=== PATIENT | female | born 1955 | race Caucasian/White ===

== ENCOUNTER 2017-07-02 00:24 | Day surgery (SDC) | payer OTHER ==
--- NOTE | 2017-07-01 19:34 | HISTORY AND PHYSICAL ---
DATE OF ADMISSION: July 02, 2017 CHIEF COMPLAINT Postmenopausal bleeding. HISTORY OF PRESENT ILLNESS Patient is a 61-year-old 4, para 2 with abnormal bleeding beginning weeks ago. She noticed the vaginal bleeding at times heavy, moderate in intensity. The duration lasted weeks and was sudden in onset. It is aggravated by her being menopausal and she had no other signs or symptoms. She had an endometrial biopsy that did not show signs of endometrial cancer or hyperplasia. She did have a saline infusion sonogram that showed an intrauterine mass. After discussion of risks and alternatives, patient agreed to proceed with hysteroscopic either polypectomy or myomectomy and fractional D and C. MEDICATIONS 1. Bystolic 10 mg. 2. CoQ10 10 mg. 3. Effexor 75 mg. 4. Enalapril/hydrochlorothiazide 10/25. 5. Liothyronine 5 mcg, which was 15 mcg per day. 6. Pravastatin 40 mg. 7. Progesterone 100 mg. 8. Vivelle-Dot 0.05 mg per 24 hours transdermal patch. 9. Wellbutrin 300 mg tablet daily. ALLERGIES ASPIRIN. REVIEW OF SYSTEMS GENITOURINARY: As per HPI. GENERAL, SKIN, EYES, EARS, NOSE, MOUTH, NECK, RESPIRATORY, CARDIOVASCULAR, GASTROINTESTINAL, MUSCULOSKELETAL, NEUROLOGICAL: All reviewed and noncontributory. PAST MEDICAL HISTORY 1. Infertility. 2. Depression. 3. High cholesterol. 4. Hypertension. 5. Skin cancer. 6. Concussion in April 2017. PAST SURGICAL HISTORY 1. Two C-sections. 2. Right thumb surgery in 2013. 3. Left thumb surgery in 2014. 4. Left shoulder in 2007. 5. Left shoulder in 2008. 6. In 2012, wide excision of skin cancer on her chest. 7. In 1990, right knee. 8. In 2015, colonoscopy. FAMILY HISTORY Father with depression and stroke. Mother with hypertension and skin cancer. SOCIAL HISTORY Drinks occasionally. She is a nonsmoker. No illicit drug use. She is an education program associate at . PHYSICAL EXAMINATION VITAL SIGNS: BP 118/76, temp 99.1, weight 218. CONSTITUTIONAL: A well-nourished, well-developed female in no distress. SKIN: Without rash or lesions. NECK: Supple without masses. HEART: Regular rate and rhythm. LUNGS: Clear to auscultation bilaterally. ABDOMEN: Soft, nontender, nondistended. Bowel sounds positive. EXTREMITIES: Nontender. No edema. PSYCHIATRIC: Alert and oriented times three. Normal mood and affect. PELVIC: Normal external female genitalia. Well estrogenized vaginal lining. Urethra normal in appearance. Cervix normal in appearance. Bladder nontender. Uterus 6 x 5 cm. No adnexal masses or tenderness. ASSESSMENT Postmenopausal bleeding with a polypoid mass within the uterus. PLAN Plan to perform hysteroscopic polypectomy or myomectomy and fractional D and C. MTDD
[~2017-07-02] VITALS: Ht 167.6 cm; Wt 95.3 kg
[~2017-07-02 00:24] MED LIST: BUPR-474 PO; ENAL1TAB35 PO; EZET1TAB81 PO; HYDROmorphone HCL 2 MG TAB PO ONE; LEVO50TA80 PO; LIOT5TAB18 PO; NEBI10TA4 PO; OXYC-869 PO; PRED15SO5 PO; PROG100C PO; VENL150C61 PO; [UNRECOGNIZED DRUG - OTHER]; cefOXitin/DEX(*) 2GM/50ML PREM 50 ML IVPB ONE
[2017-07-02 05:55] VITALS: BP 122/73
--- NOTE | 2017-07-02 06:18 | EKG ---
FACILITY: [facility] PATIENT NAME: RICHARDSON COOLEY : [id number] MR: [id number] V: [id number] EXAM DATE: ORDERING PHYSICIAN: AUSTEN TODD TECHNOLOGIST: RADHA Perez Reason : PREOP-HYSTEROSE Blood Pressure : / mmHG Vent. Rate : 065 BPM Atrial Rate : 065 BPM P-R Int : 166 ms QRS Dur : 086 ms QT Int : 376 ms P-R-T Axes : 059 -01 023 degrees QTc Int : 391 ms Normal sinus rhythm Normal ECG No previous ECGs available Confirmed by KIM CARTER ([id number]) on 07/02/2017 1:52:42 PM Referred By: KYAW Confirmed By:KIM CARTER
[2017-07-02] MEDS ORDERED: LIDOCAINE/SOD BICARB 8.4% SYR ID ONE (06:30)
[2017-07-02] MEDS ORDERED: cefOXitin/DEX(*) 2GM/50ML PREM 50 ML IVPB ONE (06:30)
[2017-07-02] MEDS ORDERED: NORMOSOL R SOLN(*) 1000 ML BAG 1,000 ML IV PRN (06:30)
[2017-07-02] MEDS ORDERED: FAMOTIDINE 20 MG TAB PO ONE (06:30)
[2017-07-02] MEDS ORDERED: CELECOXIB 200 MG CAP PO ONE (06:30)
[2017-07-02] MEDS ORDERED: MIDAZOLAM 2 MG/2 ML VIAL IVP PRN (06:30)
[2017-07-02] MEDS ORDERED: HYDROmorphone HCL 2 MG TAB PO ONE (06:30)
[2017-07-02 06:42] LABS: PLATELET COUNT, AUTOMATED 229 K/uL (150-450)
[2017-07-02] MEDS ORDERED: fentaNYL CITR 100 MCG/2 ML AMP ONE (07:10)
[2017-07-02] MEDS ORDERED: LIDOCAINE MPF 1% 5 ML VIAL ONE (07:10)
[2017-07-02] MEDS ORDERED: ONDANSETRON 4 MG/2 ML VIAL ONE (07:10)
[2017-07-02] MEDS ORDERED: DEXAMETHASONE SOD 4 MG/ML VIAL ONE (07:10)
[2017-07-02] MEDS ORDERED: PROPOFOL EMUL(*) 10MG/ML 20 ML 20 ML ONE (07:10)
[2017-07-02] MEDS ORDERED: LR(*) 1000 ML BAG 1,000 ML IV ONE (08:11)
[2017-07-02] MEDS ORDERED: HYDROmorphone HCL 2 MG TAB PO PRN (08:15)
[2017-07-02] MEDS ORDERED: METOCLOPRAMIDE 10 MG/2 ML SDV IVP PRN (08:15)
--- NOTE | 2017-07-02 08:15 | Post Operative Note ---
Operative Note - ADOLESCENT SPECIALIST Operative Day Date: Jul 02, 2017 Time: 08:00 Physicians Surgeon: KYAW Anesthesia: TODD Diagnosis Pre-Op Diagnosis: POSTMENOPAUSAL BLEEDING INTRAUTERINE POLYPOID MASS Post-Op Diagnosis: SAME LEIOMYOMA SUBMUCUS Procedure Findings: UTERUS 6X5 CM NO ADNEXAL MASSES LARGE UTERINE CAVITY FILLING SUBMUCUS MYOMA [id number] Procedure(s): HSCOPE MYOMECTOMY FRACTIONAL D AND C Complications: 0 Fluids Fluids: 850 CC NR IV Estimated Blood Loss: MINIMAL Dictated Date OP Note Dictated: Jul 02, 2017 Time OP Note Dictated: 08:20 Copies to: KIM CARD MD, JOHN MD Jul 02, 2017 08:15
[2017-07-02] MEDS ORDERED: HYDR2TAB4 PO (08:16)
--- NOTE | 2017-07-02 08:18 | OB/GYN Discharge Summary ---
Discharge Summary Reason for Hosp/Final Diag: (1) Post-menopausal bleeding (2) Status post hysteroscopic myomectomy Hospital Course & Plan: HSCOPE MYOMECTOMY PERFORMED NO COMPLICATIONS, TOLERATED WELL Lates Vital Signs Vital Signs Date Time Temp Pulse Resp B/P (MAP) Pulse Ox O2 Delivery O2 Flow Rate FiO2 07/02/17 05:55 97.9 70 20 122/73 (89) 91 Room Air Weight (Pounds): 210 Result Diagram: 07/02/1763207/02/17632 Condition: Improved Discharge: Home, Self Retirement Meds Active Scripts Hydromorphone Hcl (HYDROMORPHONE HCL) 2 Mg Tablet, 2-4 MG PO Q4H for PAIN, #20 TAB 0 Refills Prov:KIM KASPER MD 07/02/17 Reported Medications Prednisolone Sod Phos 15 Mg/5 Ml (PREDNISOLONE SOD PHOS 15 MG/5 ML) 15 Mg/5 Ml Solution, 15 MG PO, BOT 07/01/17 Liothyronine Sodium (CYTOMEL) 5 Mcg Tablet, 5 MCG PO 2XW 02/12/16 Progesterone,Micronized (PROGESTERONE) 100 Mg Capsule, 1 TAB PO HS 07/03/13 Nebivolol Hcl (BYSTOLIC) 10 Mg Tab, 1 TAB PO HS 07/03/13 Levothyroxine Sodium (SYNTHROID) 50 Mcg Tablet, 1 TAB PO DAILY 07/03/13 Enalapril/Hydrochlorothiazide (ENALAPRIL-HCTZ 10-25 MG TABLET) 1 Each Tablet, 1 TAB PO DAILY 07/03/13 Bupropion Hcl (WELLBUTRIN XL) 300 Mg Tab.er.24h, 1 TAB PO DAILY 07/03/13 Venlafaxine Hcl (EFFEXOR XR) 150 Mg Cap.er.24h, 1 TAB PO DAILY 07/03/13 Discontinued Reported Medications Ezetimibe/Simvastatin (VYTORIN 10-20 MG TABLET) 1 Each Tablet, 1 TAB PO HS 07/03/13 Follow up with: Dr. Kasper [phone] Follow up in: 2 wks PO Discharge Diet: As Tolerates Discharge Activity: Pelvic Rest Copies to: KIM KASPER MD, JOHN MD Jul 02, 2017 08:18
[2017-07-02 09:25] VITALS: BP 117/72
[2017-07-02 09:38] VITALS: BP 110/71
[2017-07-02 10:09] VITALS: BP 94/53
[2017-07-02 10:28] VITALS: BP 116/75
[2017-07-02 10:32] VITALS: BP 93/66
--- NOTE | 2017-07-02 14:44 | OPERATIVE REPORT 1 ---
EVENT DATE: July 02, 2017 SURGEON: Roscoe Kasper MD ANESTHESIOLOGIST: Sherman Dickson MD ANESTHESIA: General. PREOPERATIVE DIAGNOSES 1. Postmenopausal bleeding. 2. Intrauterine polypoid mass. POSTOPERATIVE DIAGNOSES 1. Postmenopausal bleeding. 2. Intrauterine polypoid mass. 3. Submucous leiomyoma. PROCEDURES PERFORMED 1. Hysteroscopic myomectomy. 2. Fractional dilation and curettage. COMPLICATIONS None. FLUIDS Normosol 850 mL IV. ESTIMATED BLOOD LOSS Minimal. INDICATIONS The patient is a 61-year-old postmenopausal female who was noted to have a moderate amount of postmenopausal bleeding. Endometrial biopsy was normal, showing no signs of cancer, and a saline infusion sonogram revealed a polypoid mass within the uterine cavity. CONSENT After a discussion of risks and alternatives, the patient desired to proceed with hysteroscopic myomectomy, polypectomy, fractional D and C. FINDINGS The uterus is 6 x 5 cm. No adnexal masses were palpated. She had a large intrauterine cavity filling submucous leiomyoma. HYSTEROSCOPIC FLUID Normal saline 2500 mL, 300 mL deficit, pressure of 80 mmHg. DESCRIPTION OF PROCEDURE After informed consent was obtained, the patient was taken to the operating room with the IV running and placed in the supine position where general anesthesia was obtained without difficulty. She was then placed in the [facility] and examined under anesthesia with the above findings. She was prepped and draped in the usual fashion. Her bladder was drained. A side- out speculum was placed into the vagina. The anterior lip of the cervix was grasped with a single-toothed tenaculum. A Kevorkian curette was used to obtain an endocervical curettage. The cervix was sounded and then dilated to allow passage of the hysteroscope. The hysteroscope was advanced. Identification of the large myoma was noted. The MyoSure was then advanced into the uterine cavity, and the MyoSure was used to shave the leiomyoma completely off the uterine wall. After the entire leiomyoma was removed, sharp curettage of the uterine lining was performed. Passage of the hysteroscope was once again advanced. No injuries and no other signs of abnormalities were noted. All instruments were removed from the vagina, and the tenaculum sites were made hemostatic with silver nitrate. The patient was taken out of the [facility], awakened from anesthesia, and taken to the recovery room in stable condition. [facility]
== END 2017-07-02 09:24 | disposition home or self-care (01) ==
LOC: OR 00:24
PROVIDERS: ATTEND Obstetrics & Gynecology
DX: N95.0 Postmenopausal bleeding (principal); D25.0 Submucous leiomyoma of uterus; I10 Essential (primary) hypertension
CPT/HCPCS: 36415; 58561; 85025; 88305; 93005; 94667; J0694; J1100; J2001; J2250; J2405; J2704; J3010; J7120; 82310; 82374; 82435; 82565; 82947; 84132; 84295; 84520

== ENCOUNTER → 2017-10-11 | Outpatient (CLI) | payer OTHER ==
[~2017-10-11] MED LIST changes: +HYDR2TAB4 PO; -HYDROmorphone HCL 2 MG TAB PO ONE; -cefOXitin/DEX(*) 2GM/50ML PREM 50 ML IVPB ONE
== END ==
LOC: LAB 09:47
PROVIDERS: ATTEND Family Medicine
DX: G31.84 Mild cognitive impairment of uncertain or unknown etiology (principal)
CPT/HCPCS: 36415; 82565

== ENCOUNTER → 2017-10-13 | Outpatient (CLI) | payer OTHER ==
[~2017-10-13] MED LIST changes: +GADOBENATE 529MG/1ML 15ML VIAL IVP ONE
--- NOTE | 2017-10-13 10:02 | RADIOLOGY IMAGING REPORT ---
FACILITY: [facility] [place] PATIENT NAME: Constance Mccray : 1955 MR: [id number] V: [id number] EXAM DATE: [id number] ORDERING PHYSICIAN: KIM WALLS TECHNOLOGIST: Location: [facility] Patient: Constance Mccray : 1955 Visit/Account:[id number] Date of Sevice: 10/13/2017 EXAMINATION: MRI Brain without intravenous contrast MRI Brain with intravenous contrast HISTORY: Mild cognitive impairment. COMPARISON: None. TECHNIQUE: Multi-planar, multi-sequence brain MRI was performed before and after IV gadolinium. CONTRAST: 15 mL of IV MultiHance FINDINGS: Brain volume: Mild parenchymal volume loss predominantly in the frontoparietal regions. Sagittal midline structures: Negative. Ventricles: Cavum septum pellucidum. No hydrocephalus. Acute ischemic changes: None. Hemorrhage: None. Masses / edema: None. Enhancement: Negative. Laurent-white: Negative. White matter: Mild patchy periventricular and deep white matter T2/FLAIR hyperintensity in the front al and parietal lobes. Vessels: Negative. Extra-axial: Negative. Calvarium / scalp: Negative. Skull base: Negative. Visualized sinuses / orbits: Negative. Visualized upper neck: Negative. IMPRESSION: 1. No acute intracranial abnormality or mass. 2. Mild parenchymal volume loss predominantly in the frontoparietal regions. 3. Cavum septum pellucidum. No hydrocephalus. 4. Mild chronic white matter changes in the frontal and parietal lobes, nonspecific but most likely representing chronic microvascular ischemia. 5. No evidence of cerebral amyloid angiopathy. Report Dictated By: Francis Wheatley MD at 10/13/2017 9:52 AM Report E-Signed By: Francis Wheatley MD at 10/13/2017 9:58 AM WSN:[id number]
== END ==
LOC: MRI 07:40
PROVIDERS: ATTEND Family Medicine
DX: G93.89 Other specified disorders of brain (principal)
CPT/HCPCS: 70553; A9577

== ENCOUNTER → 2017-10-20 | Outpatient (CLI) | payer OTHER ==
[~2017-10-20] MED LIST changes: -GADOBENATE 529MG/1ML 15ML VIAL IVP ONE
--- NOTE | 2017-10-20 11:54 | RADIOLOGY IMAGING REPORT ---
FACILITY: [facility] PATIENT NAME: RICHARDSON COOLEY : [id number] MR: [id number] V: [id number] EXAM DATE: [id number] ORDERING PHYSICIAN: KIM CARD TECHNOLOGIST: Georgina Koroma PROCEDURE:BILATERAL DIGITAL SCREENING MAMMOGRAM WITH CAD ASSISTED INTERPRETATION & 3D TOMOSYNTHESIS COMPARISON:Prior mammograms 10/19/16, 10/17/15, 10/15/14, 10/09/13, 01/26/12, 12/30/10. INDICATIONS:SCREENING FINDINGS: Small amount of fibroglandular tissue is seen throughout the breasts. The parenchymal pattern has remained stable allowing for difference in mammographic technique & patient positioning. There is no evidence of malignant appearing mass, malignant appearing calcifications or other secondary sign of malignancy in either breast. DIAGNOSTIC CATEGORY 1--NEGATIVE. RECOMMENDATIONS: ROUTINE MAMMOGRAM AND CLINICAL EVALUATION. IMPRESSION: BIRADS 1: Negative No significant abnormality is seen. Dictated by: Wilma Jones M.D. on 10/20/2017 at 8:49 Transcribed by: JULIAN on 10/20/2017 at 9:15 Approved by: Wilma Jones M.D. on 10/20/2017 at 11:54 [facility]
== END ==
LOC: MAMO 01:28
PROVIDERS: ATTEND Obstetrics & Gynecology
DX: Z12.31 Encounter for screening mammogram for malignant neoplasm of breast (principal)
CPT/HCPCS: 77063; 77067

== ENCOUNTER 2018-01-14 02:23 | Observation (INO) | payer OTHER ==
--- NOTE | 2018-01-13 22:12 | HISTORY AND PHYSICAL ---
DATE OF ADMISSION: January 14, 2018 CHIEF COMPLAINT Abnormal bleeding. HISTORY OF PRESENT ILLNESS Patient is a 62-year-old, G4, P2, with postmenopausal bleeding beginning months ago. She reported the bleeding as mild and has lasted several weeks. It is aggravated by finding of leiomyomas, and she did have an H-scope myomectomy, but the bleeding has returned. After discussion of risks and alternatives, the patient desired to proceed with robotic-assisted hysterectomy, bilateral salpingo-oophorectomy, and diagnostic cystoscopy with possible modified Saab culdoplasty. MEDICATIONS * Bystolic 10 mg daily. * CoQ10 10 mg. * Effexor 50 mg daily. * Enalapril/hydrochlorothiazide 10/25. * Liothyronine 5 mcg at 15 mcg per day. * Lysine 1000 mg tablet. * Multivitamin. * Pravastatin 80 mg tablet daily. * Vitamin B12. * Vivelle-Dot 0.05 mg q.24 hours. * Wellbutrin XL 300 mg, taking 450 mg actually q. day. ALLERGIES ASPIRIN. REVIEW OF SYSTEMS GENITOURINARY: Per HPI. GENERAL, SKIN, EYES, EARS, NOSE, MOUTH, NECK, RESPIRATORY, CARDIOVASCULAR, GASTROINTESTINAL, MUSCULOSKELETAL: All reviewed and noncontributory. NEUROLOGIC: Has had some memory loss. PAST MEDICAL HISTORY * Infertility. * Depression. * High cholesterol. * Hypertension. * Skin cancer on her chest. * She had a fall resulting in a concussion in April 2017. PAST SURGICAL HISTORY * 2013, right thumb surgery. * 2014, left thumb. * 2017, hysteroscopic myomectomy. * 2007, left shoulder. * 2008, left shoulder. * 2012, local excision of skin cancer on the chest, squamous cell carcinoma. * 1993, she had a . * 1998, had a . * 1990, had right knee surgery. * 2015, had a colonoscopy. FAMILY HISTORY Father with depression and stroke. Mother with hypertension and skin cancer. SOCIAL HISTORY She drinks occasionally. She is a nonsmoker. No illicit drug use. She is an receiving associate at . PHYSICAL EXAMINATION VITAL SIGNS: BP 128/70, temp 97.9, weight 217. CONSTITUTIONAL: Well-nourished, well-developed female in no distress. SKIN: Without rash or lesions. NECK: Supple, without masses. HEART: Regular rate and rhythm. LUNGS: Clear to auscultation bilaterally. ABDOMEN: Soft, nontender, nondistended. Bowel sounds positive. EXTREMITIES: Nontender, no edema. PSYCHIATRIC: Alert and oriented times three. Normal mood and affect. PELVIC: Normal external female genitalia. Well-estrogenized vaginal lining. Uterus irregularly shaped, slightly enlarged, nontender. No adnexal masses or tenderness. ASSESSMENT AND PLAN Postmenopausal bleeding with subserosal and intramural leiomyoma. Plan to proceed with robotic-assisted hysterectomy, bilateral salpingo-oophorectomy, diagnostic cystoscopy, and possible modified Saab culdoplasty. [facility]
[2018-01-14] VITALS (10 sets, daily range): BP systolic 96–128; BP diastolic 61–82
[~2018-01-14] VITALS: Ht 166.4 cm; Wt 97.5 kg
[~2018-01-14 02:23] MED LIST changes: +CYA1000 PO; +ESTR1PAT66 TD; +LIO5 PO; +MULT1TAB64 PO; +PRAV20TA65 PO; +UBID10CA11 PO; +[UNRECOGNIZED DRUG - CODE] PO
[2018-01-14] MEDS ORDERED: DEXAMETHASONE SOD PHOS 10MG/ML ONE (09:01)
[2018-01-14] MEDS ORDERED: PROPOFOL EMUL(*) 10MG/ML 20 ML 20 ML ONE (09:01)
[2018-01-14] MEDS ORDERED: fentaNYL CITR 100 MCG/2 ML AMP ONE ×2 (09:01→15:08)
[2018-01-14] MEDS ORDERED: ROCURONIUM BROM 10 MG/ML 10 ML ONE ×2 (09:01→13:57)
[2018-01-14] MEDS ORDERED: LIDOCAINE MPF 1% 5 ML VIAL ONE (09:01)
[2018-01-14] MEDS ORDERED: MIDAZOLAM 2 MG/2 ML VIAL ONE (09:01)
[2018-01-14] MEDS ORDERED: ONDANSETRON 4 MG/2 ML VIAL ONE (09:01)
[2018-01-14] MEDS ORDERED: SCOPOLAMINE 1.5 MG PATCH TD ONE (10:25)
[2018-01-14 10:29] LABS: PLATELET COUNT, AUTOMATED 238 K/uL (150-450)
--- NOTE | 2018-01-14 10:42 | Post Operative Note ---
Operative Note - PC ANALYST Operative Day Date: Jan 14, 2018 Time: 13:00 Physicians Surgeon: KYAW Stitcher Feeder: MAKI Anesthesia: CIFUENTES Diagnosis Pre-Op Diagnosis: POSTMENOPAUSAL BLEEDING LEIOMYOMA Post-Op Diagnosis: SAME DENSE ADHESIONS POSTERIOR CUL DE SAC Procedure Findings: UTERUS 8X6 IRREGULARLY SHAPED UTERUS NORMAL RIGHT OVARY AND TUBE WITH ADHESION. LEFT TUBE AND OVARY DENSELY ADHERED POSTERIOR CULDE SAC OBLITERATING POSTERIOR CUL DE SAC NORMAL ANATOMY, WITH [employer] MASTERS WINDOWS OBSERVED ON RIGHT LOWER PELVIS. ADHESION LEFT PELVIC SIDEWALL WITH BOWEL. [id number] Procedure(s): RAH BSO EXTENSIVE ADHESIOLYSIS DX CYSTO Complications: 0 Fluids Fluids: 2000 CC NR IV Estimated Blood Loss: 150 CC Dictated Date OP Note Dictated: Jan 14, 2018 Time OP Note Dictated: 14:54 Copies to: KIM CARD MD, JOHN MD Jan 14, 2018 10:42
[2018-01-14] MEDS ORDERED: HYDROmorphone HCL 2 MG TAB PO ONE (10:45)
[2018-01-14] MEDS ORDERED: CELECOXIB 200 MG CAP PO ONE (10:45)
[2018-01-14] MEDS ORDERED: NORMOSOL R SOLN(*) 1000 ML BAG 1,000 ML IV PRN (11:00)
[2018-01-14] MEDS ORDERED: PHENAZOPYRIDINE 200 MG TAB PO ONE (11:00)
[2018-01-14] MEDS ORDERED: LIDOCAINE/SOD BICARB 8.4% SYR ID ONE (11:00)
[2018-01-14] MEDS ORDERED: MIDAZOLAM 2 MG/2 ML VIAL IVP PRN (11:00)
[2018-01-14] MEDS ORDERED: FAMOTIDINE 20 MG TAB PO ONE (11:00)
[2018-01-14] MEDS ORDERED: ROPIVACAINE 0.2% 20 ML VIAL ONE (11:05)
[2018-01-14] MEDS: cefOXitin/DEX(*) 2GM/50ML PREM 50 ML IVPB ONE ×2 (11:06→11:14)
[2018-01-14] MEDS ORDERED: IBUP800T37 PO (11:26)
[2018-01-14] MEDS ORDERED: OXYC-373 PO (11:26)
--- NOTE | 2018-01-14 11:28 | OB/GYN Discharge Summary ---
Discharge Summary Reason for Hosp/Final Diag: (1) S/P robot-assisted surgical procedure Hospital Course & Plan: [facility] BSO PERFORMED NO COMPLICATIONS, ON DAY 1, PAIN CONTROLLED TOLERATING DIET AND ACTIVITY Lates Vital Signs Vital Signs Date Time Temp Pulse Resp B/P (MAP) Pulse Ox O2 Delivery O2 Flow Rate FiO2 01/14/18 10:38 98.3 74 20 128/82 (97) 89 Room Air Weight (Pounds): 215 Result Diagram: 01/14/18 1018 01/14/18 1018 Condition: Improved Discharge: Home, Self Group Home Meds Active Scripts Oxycodone Hcl/Acetaminophen (OXYCODONE-ACETAMINOPHEN 5-325) 1 Each Tablet, 1-2 EACH PO Q4H Y for PAIN, #30 TAB 0 Refills TAKE 1-2 TABLET NEEDED FOR PAIN - NO CLOSER THAN EVERY 4 HOURS. Prov:KIM KASPER MD 01/14/18 Ibuprofen (IBUPROFEN) 800 Mg Tablet, 1 TAB PO Q8H, #30 TAB 0 Refills Take with food every 8 hours. Prov:KIM KASPER MD 01/14/18 Reported Medications Pravastatin Sodium (PRAVACHOL) 20 Mg Tablet, 80 MG PO QDAY, TAB 01/06/18 Bupropion Hcl (WELLBUTRIN XL) 300 Mg Tab.er.24h, 300 MG PO QDAY, TAB 01/06/18 Estradiol (VIVELLE-DOT 0.05 MG) 1 Each Patch.tdsw, 1 EACH TD, PATCH.BWK 01/06/18 Cyanocobalamin (Vitamin B-12) (VITAMIN B-12) 1,000 Mcg Tablet, 1000 MCG PO 01/06/18 Multivitamin (MULTI VITAMIN DAILY) 1 Each Tablet, 1 EACH PO 01/06/18 Lysine (LYSINE) 1,000 Mg Tablet, 1000 MG PO 01/06/18 Liothyronine Sodium (LIOTHYRONINE SODIUM) 5 Mcg Tablet, 15 MCG PO QDAY 01/06/18 Enalapril/Hydrochlorothiazide (ENALAPRIL-HCTZ 10-25 MG TABLET) 1 Each Tablet, 1 EACH PO 01/06/18 Venlafaxine Hcl (EFFEXOR XR) 150 Mg Cap.er.24h, 150 MG PO QDAY 01/06/18 Ubidecarenone (CO Q-10) 10 Mg Capsule, 10 MG PO, CAPSULE 01/06/18 Nebivolol Hcl (BYSTOLIC) 10 Mg Tab, 1 TAB PO HS 07/03/13 Levothyroxine Sodium (SYNTHROID) 50 Mcg Tablet, 1 TAB PO DAILY 07/03/13 Discontinued Reported Medications Progesterone,Micronized (PROGESTERONE) 100 Mg Capsule, 1 TAB PO HS 07/03/13 Follow up with: Dr. Kasper [phone] Follow up in: 6 wks PP or PO, 2 wks PO Discharge Diet: As Tolerates Discharge Activity: Pelvic Rest Copies to: KIM KASPER MD, JOHN MD Jan 14, 2018 11:28
[2018-01-14] MEDS ORDERED: SUGAMMADEX SOD 500 MG/5 ML SDV ONE (14:26)
[2018-01-14] MEDS ORDERED: FAMOTIDINE(*) 20MG/50ML PREMIX 50 ML IVPB PRN (14:44)
[2018-01-14] MEDS ORDERED: PROMETHAZINE 25 MG/ML 1 ML AMP IVP PRN (14:45)
[2018-01-14] MEDS ORDERED: ONDANSETRON 4 MG/2 ML VIAL IV PRN (14:45)
[2018-01-14] MEDS ORDERED: METOCLOPRAMIDE 10 MG/2 ML SDV IV PRN ×2 (14:45→23:20)
[2018-01-14] MEDS ORDERED: INFLUENZA VIRUS VAC 0.5 ML SYR IM ONE (14:45)
[2018-01-14] MEDS ORDERED: HYDROmorphone HCL 2 MG TAB PO PRN (14:45)
[2018-01-14] MEDS ORDERED: PROMETHAZINE 25 MG/ML 1 ML AMP ONE (15:45)
[2018-01-14] MEDS: ACETAMINOPHEN(*)1000 MG/100 ML 100 ML IVPB SCH ×2 (15:47→21:26)
--- NOTE | 2018-01-14 16:47 | OPERATIVE REPORT 1 ---
EVENT DATE: January 14, 2018 SURGEON: Roscoe Kasper MD ANESTHESIOLOGIST: Cj Ross MD ANESTHESIA: General. WATCH ENGINEER: Mike Bella MD PREOPERATIVE DIAGNOSES 1. Postmenopausal bleeding. 2. Leiomyoma. POSTOPERATIVE DIAGNOSES 1. Postmenopausal bleeding. 2. Leiomyoma. 3. Dense adhesions in the posterior cul-de-sac and left pelvic sidewall. PROCEDURES PERFORMED 1. Robotic-assisted hysterectomy with bilateral salpingo-oophorectomy. 2. Extensive adhesiolysis. 3. Diagnostic cystoscopy. COMPLICATIONS None. FLUIDS Normosol 2000 mL IV. ESTIMATED BLOOD LOSS 150 mL INDICATIONS Patient is a 62-year-old female with postmenopausal bleeding. She had a myomectomy in early 2018, however, continued to have abnormal bleeding, and after discussion of risks and alternatives, desired to proceed with hysterectomy. Discussed options for hysterectomy, and patient after discussing risks, benefits, and alternatives decided on robotic-assisted hysterectomy with bilateral salpingo-oophorectomy and diagnostic cystoscopy. FINDINGS She had uterus 8 x 6 cm, an irregularly shaped uterus, and dense adhesions in the posterior cul-de-sac with the left tube and ovary densely adhered, obliterating the posterior cul-de-sac. There are adhesions of the descending colon in the left pelvic sidewall and adhesions of the right ovary in the posterior cul-de-sac as well. Normal-appearing bladder at the end of the procedure with bilateral ureteral jets being observed with Pyridium-stained urine from the ureteric orifices bilaterally. DESCRIPTION OF PROCEDURE After informed consent was obtained, the patient was taken to the operating room with the IV running and placed in a supine position where general anesthesia was obtained without difficulty. She was then placed in the [facility] and examined under anesthesia with the above findings. She was prepped and draped in the usual fashion. A Arias catheter was placed. A weighted speculum was placed into the vagina. The uterus sounded to 9 cm. The VCare uterine manipulator was then advanced into the uterine cavity after being sewn at 6 and 12 o'clock, securing the VCare to the cervix with 0 Vicryl. The remainder of the instruments were removed from the vagina. Legs were lowered. Attention then turned to the abdomen. Naropin 0.2% infiltrated into the umbilicus. Skin incision made with a scalpel. Veress needle advanced into the abdominal cavity. Normal CO2 filling pressures were noted. After adequate insufflation was performed, an 8 mm bladeless trocar was advanced under laparoscopic guidance. Intra-abdominal placement was confirmed by laparoscopy. No injuries were noted at the time of entry. The remainder of the ports were placed in a horizontal plane with #1 and #2 on the patient's left and #3 in the midline with #4 on the right and an assist port on the far right. These were all placed in a similar fashion with 0.2% Naropin, skin incision with a scalpel , and advancing the trocars under direct visualization. After all the trocars were placed, patient was placed in Trendelenburg positioning. The adhesions could be seen, and the uterus was difficult to manipulate out of the pelvis because of the adhesions. There were Eze-Masters windows visualized and dense adhesions in the posterior cul-de-sac with difficulty visualizing the left tube and ovary because of the adhesions. Right tube and ovary appeared normal with adhesions. There was a fibroid on the left lower uterine segment subserosal. The robot was then docked and a camera placed and targeted. Targeting was successful. The remaining arms were docked. A ProGrasp was placed in #1, scissors in #2, the vessel sealer in #4, and the assist port was in the far right lateral position. Once the instruments were advanced into the lower pelvis and visualized, Dr. Kasper came to the console. Inspection of the abdomen revealed the adhesions in the left lower quadrant. The bowel was released in the left lower quadrant to try to allow bowel to escape from the pelvis. There were dense adhesions of the tube and ovary into the posterior cul -de-sac and colon and posterior uterine wall. These were removed with the Endo Ale, and both blunt and sharp dissection was used to try to restore normal anatomy. This was an extensive amount of time trying to avoid injury and vascular pedicles. Once the tube was initially away from the colon and then the pelvic sidewall, locating the planes between the two, the tube and ovary were then elevated, and the adhesions were further removed from the left pelvic sidewall to try to restore normal anatomy. At this point, the infundibulopelvic ligament was observed, and the left infundibulopelvic ligament was grasped with a vessel sealer, and vessel sealer was used to coapt and then transect the infundibulopelvic ligament. The tube and ovary were then removed from the pelvic sidewall with the vessel sealer down towards the cornual region of the uterus. The round ligament was then grasped with a vessel sealer, coapted, and transected. The broad ligament was also coapted and transected with the vessel sealer down to the lower uterine segment. The fibroid in the left lower segment was interfering with visualization of the VCare cup. Attention then turned to the patient's right. The right tube and ovary were removed from the pelvic sidewall with those Endo Ale, restoring normal anatomy on the right. The right infundibulopelvic ligament was then identified and the vessel sealer used to seal the infundibulopelvic ligament, transecting the IP and then the mesosalpinx towards the cornual region of the uterus. The right round ligament was then coapted and transected, the broad ligament sealed and transected with the vessel sealer down to the lower uterine segment. The ProGrasp was then used to elevate the bladder flap of the peritoneum. The scissors were used to create the transection of the peritoneum over the VCare cup. The posterior leaf of the broad ligament was then transected down towards the right uterosacral ligament. Uterine arteries were identified at their insertion in the lower uterine segment. The vessel sealer was used to seal the uterine arteries at their insertion in the lower uterine segment and then transected. The vessel sealer was used in a parallel manner to the cervix to further seal the uterine vessels, and the scissors were used to transect the remaining pedicles. The dissection and the development a bladder flap was then further performed, and the posterior peritoneum was then incised over the VCare cup. Attention then turned back to the patient's left side. There was oozing from the previous dissection of the multiple adhesions. Suction irrigation was performed. The uterine arteries were visualized by making a peritoneal incision over the VCare cup creating the bladder flap anteriorly and then using the scissors to transect the broad ligament posteriorly towards the right uterosacral ligament. Uterine arteries then could be visualized. The vessel sealer was then used to seal the uterine arteries in three locations. The uterine artery pedicle was then transected. The vessel sealer was used in a parallel manner to the cervix to further seal the uterine artery pedicle complex, creating hemostasis. The ale were used to further develop the bladder flap underneath the uterine arteries. Once the uterine arteries were transected, further suction and irrigation were performed. Attention was then turned back to the left where the VCare cup could be visualized. The fibroid on the patient's left was making it difficult to palpate the VCare cup. VCare cup could be seen at the 6 o'clock position. A colpotomy was performed at that location, and then again attention turned to the patient's right where the colpotomy was performed at the 12 and carried through to the 3 to the 6 o'clock position. The colpotomy was further carried from the 6 to the 9 o'clock position with the ale, and then the completion of the colpotomy was performed from 12 to 9 o'clock in a counterclockwise manner. Once the uterus was completely transected, it was removed through the vagina. Irrigation was performed. No bleeding was noted. The instruments were replaced with a ProGrasp in #1. A suction/irrigation device had been placed in the #2 port for visualization purposes. The bipolar fenestrated grasper had been placed in #4 with the colpotomy, and the #2 and #4 instruments were removed for replacement with the needle taxi driver and the long fenestrated grasper. Suture of 0 Vicryl was then used to plicate the right uterosacral ligament to the ipsilateral portion of the vaginal lining in a [id number]-en-[id number] suture on the patient's right; same procedure performed on the left. The V-Loc suture was then advanced into the abdomen, and the 0 Vicryl suture was removed. Going from right to left, the vaginal cuff was closed in a running fashion with the V-Loc suture. Once this was closed, irrigation and suction were then performed. No further bleeding was noted. All the pedicles were hemostatic. All the instruments were then removed from the abdomen, and the 10-11 port was closed with 0 Vicryl with the assistance of a Lopez-Anupama closure device and the skin closed with 4-0 Monocryl and Dermabond. Cystoscopy was performed. The Arias catheter was removed. The cystoscope was advanced. Bilateral ureteral jets could be seen with Pyridium-stained urine. No injuries were noted within the bladder. The bladder was drained, and the Arias catheter was then replaced. There was some oozing from the vagina from the large uterus being passed out of the vagina. Two interrupted sutures were required to repair the tears from the stretching of the vagina to remove the uterus. Once this had been performed, the Arias catheter was then replaced. The patient was taken out of the [facility], awakened from anesthesia, and taken to the recovery room in stable condition. YVETTE
[2018-01-14] MEDS: SIMETHICONE 80 MG CHEW CHEW SCH ×2 (17:00→21:10)
[2018-01-14] MEDS: DLR(*) 1000 ML BAG 1,000 ML IV PRN (18:40)
[2018-01-14] MEDS: DOCUSATE CALCIUM 240 MG CAP PO SCH (21:09)
[2018-01-14] MEDS: FAMOTIDINE 20 MG TAB PO SCH (21:09)
[2018-01-14] MEDS: CELECOXIB 200 MG CAP PO SCH (21:10)
[2018-01-15] MEDS: ACETAMINOPHEN(*)1000 MG/100 ML 100 ML IVPB SCH ×3 (02:56→14:26)
[2018-01-15] MEDS: DLR(*) 1000 ML BAG 1,000 ML IV PRN (02:57)
[2018-01-15 03:12] VITALS: BP 95/61
[2018-01-15 06:39] LABS: PLATELET COUNT, AUTOMATED 181 K/uL (150-450)
[2018-01-15 08:00] VITALS: BP 101/69
[2018-01-15] MEDS: FAMOTIDINE 20 MG TAB PO SCH (09:17)
[2018-01-15] MEDS: SIMETHICONE 80 MG CHEW CHEW SCH ×2 (09:17→13:35)
[2018-01-15] MEDS: DOCUSATE CALCIUM 240 MG CAP PO SCH (09:17)
[2018-01-15] MEDS: CELECOXIB 200 MG CAP PO SCH (09:17)
--- NOTE | 2018-01-15 10:00 | OB/GYN Progress Note ---
OB Subjective Progress Notes Subjective Pain controlled, Tolerating diet and activity. GI: POS Flatus, NEG Nausea, NEG Vomiting : Voiding Well Pain: Mild OB Objective Physical Exam Vital Signs Date Time Temp Pulse Resp B/P (MAP) Pulse Ox O2 Delivery O2 Flow Rate FiO2 01/15/18 08:00 96 Nasal Cannula 1.0 01/15/18 08:00 99.0 73 16 101/69 (80) Intake and Output 01/16/18 07:00 Output Total 900 ml Balance -900 ml Output Urine Total 900 ml # Voids 1 Cardiovascular: Regular Rate and Rhythm Respiratory: Clear to Auscultation Abdomen: Soft, Non-Tender, Non-Distended, Bowel Sounds Present Extremities: No Edema Result Diagram: 01/15/18 0558 01/14/18 1018 Assessment and Plan Problems: (1) S/P robot-assisted surgical procedure Assessment & Plan: Pain controlled, Tolerating diet and activity. KIM CARD MD Jan 15, 2018 10:00
[2018-01-15 11:21] VITALS: BP 105/62
== END 2018-01-15 10:00 | disposition home or self-care (01) ==
LOC: OR 02:23 → PED 16:30 → INTOOBSV 16:30
PROVIDERS: ADMIT Obstetrics & Gynecology; ATTEND Obstetrics & Gynecology
DX: N95.0 Postmenopausal bleeding (principal); D25.9 Leiomyoma of uterus, unspecified; N73.6 Female pelvic peritoneal adhesions (postinfective)
CPT/HCPCS: 36415; 58571; 85025; 88307; G0378; J0131; J0694; J1100; J2001; J2405; J2550; J2704; J2765; J2795; J3010; S2900; 82310; 82374; 82435; 82565; 82947; 84132; 84295; 84520; J2250

== ENCOUNTER → 2018-11-04 | Outpatient (CLI) | payer OTHER ==
[~2018-11-04] MED LIST changes: +IBUP800T37 PO; +OXYC-373 PO
--- NOTE | 2018-11-08 10:19 | RADIOLOGY IMAGING REPORT ---
FACILITY: [facility] PATIENT NAME: RICHADRSON COOLEY : [id number] MR: [id number] V: [id number] EXAM DATE: ORDERING PHYSICIAN: KIM WALLS TECHNOLOGIST: Dora Vazquez PROCEDURE: BILATERAL DIGITAL SCREENING MAMMOGRAM WITH CAD ASSISTED INTERPRETATION & 3D TOMOSYNTHESIS REASON FOR STUDY: Screening. FAMILY HISTORY OF BREAST CANCER: BREAST PROCEDURES/TREATMENTS: COMPARISON: [facility]. VIEWS OBTAINED: 2D & 3D full field CC & MLO. BREAST DENSITY: Scattered fibroglandular densities are present in both breasts. MAMMOGRAM FINDINGS: No masses or suspicious calcifications. IMPRESSION: BIRADS 1: Negative. DIAGNOSTIC CATEGORY 1--NEGATIVE. RECOMMENDATIONS: ROUTINE MAMMOGRAM AND CLINICAL EVALUATION IN 1 YEAR. Dictated by: Sanya Carrillo M.D. on 11/07/2018 at 9:52 Transcribed by: JULIAN on 11/07/2018 at 10:20 Approved by: Wilma Jones M.D. on 11/08/2018 at 10:18 [facility]
== END ==
LOC: MAMO 02:41
PROVIDERS: ATTEND Family Medicine
DX: Z12.31 Encounter for screening mammogram for malignant neoplasm of breast (principal); Z80.3 Family history of malignant neoplasm of breast
CPT/HCPCS: 77063; 77067

== ENCOUNTER → 2019-01-28 | Outpatient (REF) | payer OTHER ==
[~2019-01-28] MED LIST changes: -LIO5 PO; +LIOT5TAB PO
[2019-01-28 10:19] LABS: PLATELET COUNT, AUTOMATED 257 K/uL (150-450)
== END ==
PROVIDERS: ATTEND Nurse Practitioner Family
DX: L03.116 Cellulitis of left lower limb (principal)
CPT/HCPCS: 82040; 82247; 82310; 82374; 82435; 82565; 82947; 84075; 84132; 84155; 84295; 84450; 84460; 84520; 85025; 86788; 86789